=== PATIENT | male | born 1980 ===

== ENCOUNTER 2022-07-07 05:28 | Day surgery (SDC) | payer OTHER ==
[2022-07-07] MEDS ORDERED: NEXIUM 24HR20 MG PO (08:51)
== END 2022-07-07 10:00 | disposition home or self-care (01) ==
LOC: AMB-ENDOS 05:28
PROVIDERS: ATTEND Surgery
DX: K29.00 Acute gastritis without bleeding (principal); Z20.822 Contact with and (suspected) exposure to COVID-19; K29.80 Duodenitis without bleeding